=== PATIENT | female | born 1965 | race Caucasian/White ===

== ENCOUNTER → 2018-02-08 | Outpatient (CLI) | payer BC ==
--- NOTE | 2018-02-08 14:49 | RAD ---
DATE: 02/08/2018 EXAM: MAMMO ANNEMARIE SCREENING BILATERAL HISTORY: Routine screening COMPARISON: Previous mammogram from 2013 This study was interpreted with the benefit of Computerized Aided Detection (CAD). FINDINGS: 2-D and 3-D tomosynthesis imaging was performed in CC and MLO projections. Breast density category: C. the breasts are heterogeneously dense which may obscure small masses. The skin and nipples are within normal limits. There is an oval-shaped mass measuring 5 mm at 2-3:00 position in the left breast approximately 3.5 cm from the nipple on MLO view best seen on image 5 of 56 of the annemarie views. Right breast demonstrates no mammographic abnormality. IMPRESSION Nodular density in the left outer breasts most likely intraparenchymal lymph node. However ultrasound confirmation recommended. BI-RADS CATEGORY: 0 INCOMPLETE: NEEDS ADDITIONAL IMAGING EVALUATION AND/OR PRIOR MAMMOGRAMS FOR COMPARISON. RECOMMENDED FOLLOW-UP: ADD ADDITIONAL IMAGING ultrasound of the left outer breast at 2-3:00 position. PQRS compliance statement: Patient information was entered into a reminder system with a target due date for the next mammogram. Mammography is a sensitive method for finding small breast cancers, but it does not detect them all and is not a substitute for careful clinical examination. A negative mammogram does not negate a clinically suspicious finding and should not result in delay in biopsying a clinically suspicious abnormality. "Our facility is accredited by the [employer] Mammography [employer]."
== END | disposition home or self-care (01) ==
LOC: MAMMO 13:11
PROVIDERS: ATTEND Specialist
DX: Z12.31 Encounter for screening mammogram for malignant neoplasm of breast (principal)
CPT/HCPCS: 77063; 77067

== ENCOUNTER → 2018-03-04 | Outpatient (CLI) | payer BC ==
--- NOTE | 2018-03-04 10:16 | RAD ---
Limited left breast ultrasound 03/04/2018 Indication: Mass in the left breast. Comparison: Prior mammogram from 02/08/2018, 11/25/2012. Technique: Limited sonographic evaluation of the left breast was performed. Findings: Imaging was performed at the 2 and 3:00 positions. At the 3:00 position, 5 cm from the nipple, there is a circumscribed oval mass with sonographic characteristics compatible with an intramammary lymph node. There is a fatty hilum with normal reniform morphology and thin cortex. Impression: Benign findings of the left breast, as detailed above. BI-RADS Category 1. Negative. Recommendations: Recommend annual screening mammography in one year. Expected date or return for screening mammography will be 02/08/2019.
== END | disposition home or self-care (01) ==
LOC: US 08:38
PROVIDERS: ATTEND Specialist
DX: R92.8 Other abnormal and inconclusive findings on diagnostic imaging of breast (principal)
CPT/HCPCS: 76641